=== PATIENT | female | born 1965 | race Caucasian/White ===

== ENCOUNTER 2022-05-11 09:55 | Inpatient (IN) | payer BC, OTHER ==
[~2022-05-11] VITALS: Ht 162.6 cm; Wt 90.3 kg
[~2022-05-11 09:55] MED LIST: BUPR-317 PO; DIPH25CA85 PO; HYDR-3830 PO; MAGNESIUM PO; MIRALAX PO; OMEP40CA21 PO; ONDA4TAB10 PO; PROBIOTIC PO; VITAMIN D3 PO; ZOLP12.555 PO
[2022-05-11 11:07] LABS: BASOPHILS % (AUTO) 1.3 % (0.0-5.0); EOSINOPHILS % (AUTO) 12.7 % (0.0-8.0); HEMATOCRIT 32.3 % (36-48); LYMPHOCYTES % (AUTO) 19.4 % (21.0-51.0); MEAN CORPUSCULAR HEMOGLOBIN 27.9 pg (27.0-33.0); MEAN CORPUSCULAR HGB CONC 31.9 g/dL (32.0-36.0); MEAN CORPUSCULAR VOLUME 87.5 fL (79-99); MONOCYTES % (AUTO) 5.4 % (3.0-13.0); NEUTROPHILS % (AUTO) 60.8 % (40.0-77.0); PLATELET COUNT (AUTO) 215 K/uL (130-400); RED BLOOD CELL COUNT(AUTO) 3.69 MIL/uL (4.00-5.50); RED CELL DISTRIBUTION WIDTH 13.2 % (11.0-15.5); WHITE BLOOD COUNT (AUTO) 5.5 K/uL (4.8-10.8)
[2022-05-11 11:17] LABS: CREATININE 1.1 mg/dL (0.5-1.5); POTASSIUM 4.4 mmol/L (3.5-5.1)
[2022-05-11 11:21] LABS: ALBUMIN 2.9 g/dL (3.5-5.0); TOTAL PROTEIN, SERUM 6.7 g/dL (6.0-8.3)
[2022-05-11] MEDS ORDERED: PANTOPRAZOLE 40 MG/VIAL IVP STA (11:48)
[2022-05-11 11:57] LABS: AMPHET/METH SCREEN,URINE NEGATIVE (NEGATIVE); BARBITURATE SCREEN, URINE NEGATIVE (NEGATIVE); BENZODIAZEPINES SCREEN,URINE NEGATIVE (NEGATIVE); CANNABINOID SCREEN,URINE NEGATIVE (NEGATIVE); COCAINE SCREEN,URINE NEGATIVE (NEGATIVE); OPIATE SCREEN,URINE NEGATIVE (NEGATIVE); PHENCYCLIDINE SCREEN,URINE NEGATIVE (NEGATIVE)
[2022-05-11 11:59] LABS: APPEARANCE,URINE CLEAR (CLEAR); BILIRUBIN,URINE NEGATIVE (NEGATIVE); COLOR,URINE LIGHT-YELLOW (YELLOW); GLUCOSE, URINE (UA) NEGATIVE (NEGATIVE); KETONES,URINE NEGATIVE (NEGATIVE); LEUKOCYTE ESTERASE ,URINE NEGATIVE Leu/uL (NEGATIVE); NITRATE,URINE NEGATIVE (NEGATIVE); OCCULT BLOOD,URINE NEGATIVE (NEGATIVE); PROTEIN,URINE NEGATIVE (NEGATIVE); UROBILINOGEN,URINE 0.2 mg/dL (0.2-1.0)
[2022-05-11 12:01] LABS: SQUAMOUS EPITHELIAL CELL,UR RARE /HPF (0-2); WBC,URINE 0-1 /HPF (0-1)
[2022-05-11] MEDS ORDERED: ONDANSETRON 4MG INJ IVP ONE (13:00)
[2022-05-11] MEDS ORDERED: MORPHINE 2 MG SYG IVP ONE (13:00)
[2022-05-11] MEDS ORDERED: ZOSYN 3.375GM +NS 50ML IV STA (13:11)
[2022-05-11] MEDS ORDERED: MORPHINE 2 MG SYG IVP PRN (14:30)
[2022-05-11] MEDS ORDERED: ONDANSETRON 4MG INJ IV PRN (14:30)
[2022-05-11] MEDS ORDERED: ACETAMINOPHEN 325 MG TAB PO PRN (14:30)
[2022-05-11] MEDS: 0.9%NACL 1000ML 1,000 ML IV SCH (14:30)
[2022-05-11 15:19] LABS: HEMOGLOBIN A1C 5.1 % (4.0-6.0)
[2022-05-11] MEDS: ZOSYN 3.375GM +NS 50ML IV SCH ×2 (15:36→23:15)
[2022-05-11] MEDS ORDERED: IOHEXOL 350 MG/ML 100ML INFUS..BTL IV ONE (16:31)
[2022-05-11] MEDS ORDERED: FAMOTIDINE 20MG VIAL IV SCH (21:00)
[2022-05-11] MEDS: FAMOTIDINE 20MG VIAL IV SCH (21:13)
[2022-05-11] MEDS ORDERED: POLY17PO4 PO (22:00)
[2022-05-11] MEDS ORDERED: BUPR-317 PO (22:00)
[2022-05-11] MEDS ORDERED: ZOLP12.555 PO (22:00)
[2022-05-11] MEDS ORDERED: L.AC1CAP6 PO (22:00)
[2022-05-11] MEDS ORDERED: MAGN100T5 PO (22:00)
[2022-05-11] MEDS ORDERED: ONDA-104 PO (22:00)
[2022-05-11] MEDS ORDERED: HYDR-3830 PO (22:00)
[2022-05-12] MEDS: 0.9%NACL 1000ML 1,000 ML IV SCH ×4 (00:42→20:30)
[2022-05-12 01:07] VITALS: BP 108/54
[2022-05-12 04:46] VITALS: BP 122/74
[2022-05-12 04:53] LABS: HEMATOCRIT 30.6 % (36-48); MEAN CORPUSCULAR HEMOGLOBIN 27.8 pg (27.0-33.0); MEAN CORPUSCULAR HGB CONC 31.7 g/dL (32.0-36.0); MEAN CORPUSCULAR VOLUME 87.7 fL (79-99); RED BLOOD CELL COUNT(AUTO) 3.49 MIL/uL (4.00-5.50); RED CELL DISTRIBUTION WIDTH 13.2 % (11.0-15.5); WHITE BLOOD COUNT (AUTO) 5.7 K/uL (4.8-10.8)
[2022-05-12 05:05] LABS: POTASSIUM 3.9 mmol/L (3.5-5.1)
[2022-05-12] MEDS: ZOSYN 3.375GM +NS 50ML IV SCH ×3 (05:47→22:35)
[2022-05-12 07:35] VITALS: BP 105/70
[2022-05-12] MEDS: HYDROXYZINE 10 MG TABLET PO SCH ×2 (09:00→12:25)
[2022-05-12] MEDS: ENOXAPARIN SODIUM 40 MG/0.4 ML SYRINGE SQ SCH (09:00)
[2022-05-12] MEDS: FAMOTIDINE 20MG VIAL IV SCH ×2 (09:18→20:32)
[2022-05-12 11:35] VITALS: BP 110/57
[2022-05-12 16:00] VITALS: BP 131/88
[2022-05-12 19:54] VITALS: BP 119/59
[2022-05-12] MEDS ORDERED: LACTULOSE 20 GM/30 ML UDCUP ONE (20:26)
[2022-05-12] MEDS ORDERED: POLYETHYLENE GLYCOL 3350 17 GM POWD.PACK ONE (20:27)
[2022-05-12] MEDS ORDERED: LACTULOSE 20 GM/30 ML UDCUP PO PRN (20:30)
[2022-05-12] MEDS: ACETAMINOPHEN 325 MG TAB PO PRN (20:33)
[2022-05-13] VITALS (17 sets, daily range): BP systolic 118–151; BP diastolic 58–79
[2022-05-13] MEDS: 0.9%NACL 1000ML 1,000 ML IV SCH ×2 (02:42→18:20)
[2022-05-13] MEDS ORDERED: ALPRAZOLAM 0.5 MG TABLET PO ONE (04:30)
[2022-05-13] MEDS ORDERED: ALPRAZOLAM 0.5 MG TABLET ONE (04:30)
[2022-05-13] MEDS: ZOSYN 3.375GM +NS 50ML IV SCH ×3 (04:51→20:22)
[2022-05-13 05:07] LABS: HEMATOCRIT 30.4 % (36-48); MEAN CORPUSCULAR HGB CONC 31.9 g/dL (32.0-36.0); MEAN CORPUSCULAR VOLUME 87.9 fL (79-99); RED BLOOD CELL COUNT(AUTO) 3.46 MIL/uL (4.00-5.50); RED CELL DISTRIBUTION WIDTH 12.9 % (11.0-15.5); WHITE BLOOD COUNT (AUTO) 5.3 K/uL (4.8-10.8)
[2022-05-13 05:25] LABS: INR 1.04 (0.85-1.15); PROTHROMBIN TIME 11.3 SEC (9.6-11.6)
[2022-05-13 05:27] LABS: POTASSIUM 3.5 mmol/L (3.5-5.1)
[2022-05-13] MEDS: ENOXAPARIN SODIUM 40 MG/0.4 ML SYRINGE SQ SCH (09:00)
[2022-05-13] MEDS: POLYETHYLENE GLYCOL 3350 17 GM POWD.PACK PO SCH (09:00)
[2022-05-13] MEDS: HYDROXYZINE 10 MG TABLET PO SCH (09:00)
[2022-05-13] MEDS: FAMOTIDINE 20MG VIAL IV SCH ×2 (09:24→20:22)
[2022-05-14] MEDS: 0.9%NACL 1000ML 1,000 ML IV SCH ×4 (01:42→22:30)
[2022-05-14 03:37] VITALS: BP 127/61
[2022-05-14] MEDS: ZOSYN 3.375GM +NS 50ML IV SCH ×3 (04:30→20:08)
[2022-05-14 05:12] LABS: BASOPHILS % (AUTO) 1.1 % (0.0-5.0); EOSINOPHILS % (AUTO) 18.4 % (0.0-8.0); HEMATOCRIT 38.6 % (36-48); LYMPHOCYTES % (AUTO) 22.7 % (21.0-51.0); MEAN CORPUSCULAR HEMOGLOBIN 28.3 pg (27.0-33.0); MEAN CORPUSCULAR HGB CONC 32.1 g/dL (32.0-36.0); MEAN CORPUSCULAR VOLUME 88.1 fL (79-99); MONOCYTES % (AUTO) 7.3 % (3.0-13.0); NEUTROPHILS % (AUTO) 50.2 % (40.0-77.0); PLATELET COUNT (AUTO) 195 K/uL (130-400); RED BLOOD CELL COUNT(AUTO) 4.38 MIL/uL (4.00-5.50); RED CELL DISTRIBUTION WIDTH 13.1 % (11.0-15.5); WHITE BLOOD COUNT (AUTO) 6.4 K/uL (4.8-10.8)
[2022-05-14 05:33] LABS: ALBUMIN 2.4 g/dL (3.5-5.0); CREATININE 0.9 mg/dL (0.5-1.5); POTASSIUM 3.5 mmol/L (3.5-5.1); TOTAL PROTEIN, SERUM 6.3 g/dL (6.0-8.3)
[2022-05-14 07:30] VITALS: BP 121/86
[2022-05-14] MEDS: ENOXAPARIN SODIUM 40 MG/0.4 ML SYRINGE SQ SCH (09:40)
[2022-05-14] MEDS: POLYETHYLENE GLYCOL 3350 17 GM POWD.PACK PO SCH (09:40)
[2022-05-14] MEDS: HYDROXYZINE 10 MG TABLET PO SCH (09:40)
[2022-05-14] MEDS: FAMOTIDINE 20MG VIAL IV SCH ×2 (09:40→20:08)
[2022-05-14 11:22] VITALS: BP 121/67
[2022-05-14 15:30] VITALS: BP 128/75
[2022-05-14] MEDS ORDERED: LIDOCAINE HCL-MPF 1% 2ML VIAL IV PRN (15:30)
[2022-05-14] MEDS ORDERED: POTASSIUM CHLORIDE 20MEQ/100ML 100 ML IV PRN (15:30)
[2022-05-14] MEDS ORDERED: POTASSIUM CHLORIDE 10% ELIXIR 20 MEQ/15 ML UDCUP PO PRN (15:30)
[2022-05-14 19:50] VITALS: BP 111/50
[2022-05-14] MEDS: ALPRAZOLAM 0.5 MG TABLET PO PRN (20:08)
[2022-05-14 23:40] VITALS: BP 113/59
[2022-05-15 04:00] VITALS: BP 115/66
[2022-05-15] MEDS: ZOSYN 3.375GM +NS 50ML IV SCH (06:22)
[2022-05-15 08:00] VITALS: BP 123/35
[2022-05-15] MEDS: 0.9%NACL 1000ML 1,000 ML IV SCH (08:30)
[2022-05-15] MEDS: POLYETHYLENE GLYCOL 3350 17 GM POWD.PACK PO SCH (09:00)
[2022-05-15] MEDS: FAMOTIDINE 20MG VIAL IV SCH ×2 (09:00→20:25)
[2022-05-15 09:03] LABS: HEMATOCRIT 31.7 % (36-48); MEAN CORPUSCULAR HEMOGLOBIN 27.8 pg (27.0-33.0); MEAN CORPUSCULAR HGB CONC 31.9 g/dL (32.0-36.0); MEAN CORPUSCULAR VOLUME 87.3 fL (79-99); RED BLOOD CELL COUNT(AUTO) 3.63 MIL/uL (4.00-5.50); RED CELL DISTRIBUTION WIDTH 13.4 % (11.0-15.5); WHITE BLOOD COUNT (AUTO) 5.8 K/uL (4.8-10.8)
[2022-05-15 09:20] LABS: ALBUMIN 2.4 g/dL (3.5-5.0); BILIRUBIN,DIRECT 0.1 mg/dL (0.0-0.3); CRP QUANTITATIVE 8.7 mg/L (0.00-9.0); MAGNESIUM 1.7 mg/dL (1.80-2.40); POTASSIUM 4.4 mmol/L (3.5-5.1); TOTAL PROTEIN, SERUM 6.1 g/dL (6.0-8.3)
[2022-05-15] MEDS: HYDROXYZINE 10 MG TABLET PO SCH (10:09)
[2022-05-15] MEDS: ENOXAPARIN SODIUM 40 MG/0.4 ML SYRINGE SQ SCH (10:09)
[2022-05-15 12:05] VITALS: BP 129/64
[2022-05-15] MEDS: AMOX/CLAV 875/125MG TAB PO SCH ×2 (13:27→20:26)
[2022-05-15] MEDS: ZYVOX 600 MG TAB PO SCH ×2 (13:28→20:26)
[2022-05-15 15:37] VITALS: BP 142/73
[2022-05-15 20:00] VITALS: BP 140/84
[2022-05-15] MEDS: ALPRAZOLAM 0.5 MG TABLET PO PRN (22:08)
[2022-05-15 23:31] VITALS: BP 136/67
[2022-05-16 04:00] VITALS: BP 118/68
[2022-05-16 05:33] LABS: HEMATOCRIT 32.7 % (36-48); MEAN CORPUSCULAR HEMOGLOBIN 27.7 pg (27.0-33.0); MEAN CORPUSCULAR HGB CONC 31.5 g/dL (32.0-36.0); MEAN CORPUSCULAR VOLUME 87.9 fL (79-99); RED BLOOD CELL COUNT(AUTO) 3.72 MIL/uL (4.00-5.50); RED CELL DISTRIBUTION WIDTH 13.2 % (11.0-15.5); WHITE BLOOD COUNT (AUTO) 6.2 K/uL (4.8-10.8)
[2022-05-16 06:09] LABS: ALBUMIN 2.4 g/dL (3.5-5.0); CREATININE 0.9 mg/dL (0.5-1.5); POTASSIUM 3.2 mmol/L (3.5-5.1)
[2022-05-16] MEDS: KCL 20 MEQ ERTAB PO PRN ×3 (06:42→11:29)
[2022-05-16 07:30] VITALS: BP 127/76
[2022-05-16] MEDS ORDERED: FAMOTIDINE 20MG TAB ONE (07:37)
[2022-05-16] MEDS: AMOX/CLAV 875/125MG TAB PO SCH ×2 (08:20→20:45)
[2022-05-16] MEDS: ENOXAPARIN SODIUM 40 MG/0.4 ML SYRINGE SQ SCH (08:20)
[2022-05-16] MEDS: HYDROXYZINE 10 MG TABLET PO SCH (08:20)
[2022-05-16] MEDS: ZYVOX 600 MG TAB PO SCH ×2 (08:20→20:45)
[2022-05-16] MEDS: POLYETHYLENE GLYCOL 3350 17 GM POWD.PACK PO SCH (08:25)
[2022-05-16 11:30] VITALS: BP 105/70
[2022-05-16 15:30] VITALS: BP 80/47
[2022-05-16] MEDS ORDERED: POTASSIUM CHLORIDE 10% ELIXIR 20 MEQ/15 ML UDCUP PO ONE (18:30)
[2022-05-16] MEDS ORDERED: POTASSIUM CHLORIDE 20 MEQ/100 ML BAG IV ONE (18:30)
[2022-05-16 20:00] VITALS: BP 138/67
[2022-05-16] MEDS: ALPRAZOLAM 0.5 MG TABLET PO PRN (20:46)
[2022-05-16 23:26] VITALS: BP 108/54
[2022-05-17 03:57] VITALS: BP 103/53
[2022-05-17 04:48] LABS: BASOPHILS % (AUTO) 0.6 % (0.0-5.0); HEMATOCRIT 31.5 % (36-48); LYMPHOCYTES % (AUTO) 13.9 % (21.0-51.0); MEAN CORPUSCULAR HEMOGLOBIN 28.3 pg (27.0-33.0); MEAN CORPUSCULAR HGB CONC 31.7 g/dL (32.0-36.0); MEAN CORPUSCULAR VOLUME 89.2 fL (79-99); NEUTROPHILS % (AUTO) 74.2 % (40.0-77.0); PLATELET COUNT (AUTO) 192 K/uL (130-400); RED BLOOD CELL COUNT(AUTO) 3.53 MIL/uL (4.00-5.50); RED CELL DISTRIBUTION WIDTH 13.8 % (11.0-15.5); WHITE BLOOD COUNT (AUTO) 8.9 K/uL (4.8-10.8)
[2022-05-17 05:08] LABS: ALBUMIN 2.3 g/dL (3.5-5.0); CREATININE 0.9 mg/dL (0.5-1.5); POTASSIUM 3.7 mmol/L (3.5-5.1); TOTAL PROTEIN, SERUM 5.9 g/dL (6.0-8.3)
[2022-05-17 07:59] VITALS: BP 121/76
[2022-05-17] MEDS ORDERED: FAMOTIDINE 20MG TAB PO SCH (08:30)
[2022-05-17] MEDS: POLYETHYLENE GLYCOL 3350 17 GM POWD.PACK PO SCH (09:00)
[2022-05-17] MEDS: ENOXAPARIN SODIUM 40 MG/0.4 ML SYRINGE SQ SCH (09:00)
[2022-05-17] MEDS: ZYVOX 600 MG TAB PO SCH ×2 (11:09→20:47)
[2022-05-17] MEDS: HYDROXYZINE 10 MG TABLET PO SCH (11:09)
[2022-05-17] MEDS: AMOX/CLAV 875/125MG TAB PO SCH ×2 (11:10→20:47)
[2022-05-17 12:00] VITALS: BP 127/68
[2022-05-17] MEDS: KCL 20 MEQ ERTAB PO PRN ×2 (15:53→17:49)
[2022-05-17 16:00] VITALS: BP 136/65
[2022-05-17 20:36] VITALS: BP 119/72
[2022-05-17] MEDS: ALPRAZOLAM 0.5 MG TABLET PO PRN (22:23)
[2022-05-17 23:20] VITALS: BP 125/70
[2022-05-18 03:52] VITALS: BP 122/75
[2022-05-18 05:08] LABS: HEMATOCRIT 31.6 % (36-48); MEAN CORPUSCULAR HGB CONC 32.3 g/dL (32.0-36.0); MEAN CORPUSCULAR VOLUME 86.8 fL (79-99); RED BLOOD CELL COUNT(AUTO) 3.64 MIL/uL (4.00-5.50); RED CELL DISTRIBUTION WIDTH 13.8 % (11.0-15.5); WHITE BLOOD COUNT (AUTO) 9.3 K/uL (4.8-10.8)
[2022-05-18 05:23] LABS: CREATININE 0.9 mg/dL (0.5-1.5)
[2022-05-18 08:00] VITALS: BP 132/89
[2022-05-18] MEDS: ENOXAPARIN SODIUM 40 MG/0.4 ML SYRINGE SQ SCH (09:00)
[2022-05-18] MEDS: POLYETHYLENE GLYCOL 3350 17 GM POWD.PACK PO SCH (09:00)
[2022-05-18] MEDS: ZYVOX 600 MG TAB PO SCH ×2 (11:19→21:45)
[2022-05-18] MEDS: AMOX/CLAV 875/125MG TAB PO SCH ×2 (11:19→21:45)
[2022-05-18] MEDS: HYDROXYZINE 10 MG TABLET PO SCH (11:19)
[2022-05-18] MEDS: ACETAMINOPHEN 325 MG TAB PO PRN (11:23)
[2022-05-18 11:58] VITALS: BP 97/58
[2022-05-18 16:00] VITALS: BP 113/66
[2022-05-18 19:00] VITALS: BP 91/65
[2022-05-18] MEDS: ALPRAZOLAM 0.5 MG TABLET PO PRN (21:51)
[2022-05-19] VITALS: BP 98/54
[2022-05-19 04:00] VITALS: BP 116/72
[2022-05-19 05:05] LABS: BASOPHILS % (AUTO) 0.6 % (0.0-5.0); EOSINOPHILS % (AUTO) 4.6 % (0.0-8.0); HEMATOCRIT 32.3 % (36-48); MEAN CORPUSCULAR HGB CONC 31.9 g/dL (32.0-36.0); MEAN CORPUSCULAR VOLUME 87.8 fL (79-99); MONOCYTES % (AUTO) 5.2 % (3.0-13.0); NEUTROPHILS % (AUTO) 73.2 % (40.0-77.0); PLATELET COUNT (AUTO) 212 K/uL (130-400); RED BLOOD CELL COUNT(AUTO) 3.68 MIL/uL (4.00-5.50); RED CELL DISTRIBUTION WIDTH 13.9 % (11.0-15.5); WHITE BLOOD COUNT (AUTO) 8.1 K/uL (4.8-10.8)
[2022-05-19 05:20] LABS: CREATININE 0.8 mg/dL (0.5-1.5); POTASSIUM 3.9 mmol/L (3.5-5.1)
[2022-05-19 08:00] VITALS: BP 120/31
[2022-05-19] MEDS: ENOXAPARIN SODIUM 40 MG/0.4 ML SYRINGE SQ SCH (09:55)
[2022-05-19] MEDS: AMOX/CLAV 875/125MG TAB PO SCH (09:55)
[2022-05-19] MEDS: POLYETHYLENE GLYCOL 3350 17 GM POWD.PACK PO SCH (09:55)
[2022-05-19] MEDS: ZYVOX 600 MG TAB PO SCH (09:55)
[2022-05-19] MEDS: HYDROXYZINE 10 MG TABLET PO SCH (09:55)
[2022-05-19 11:54] VITALS: BP 108/60
== END 2022-05-19 16:00 | disposition home or self-care (01) | DRG 862 ==
LOC: EDH 09:55 → OBSVTOIN 14:24 → EDHIP 14:24 → 3BH 23:25
PROVIDERS: ADMIT Hospitalist; ATTEND Hospitalist
PROC: 0W9F3ZZ Drainage of Abdominal Wall, Percutaneous Approach (ICD-10-PCS; principal; 2022-05-13)
DX: T81.43XA Infection following a procedure, organ and space surgical site, initial encounter (principal); K65.1 Peritoneal abscess; R53.2 Functional quadriplegia; L03.311 Cellulitis of abdominal wall; L02.211 Cutaneous abscess of abdominal wall; T85.79XA Infection and inflammatory reaction due to other internal prosthetic devices, implants and grafts, initial encounter; L02.818 Cutaneous abscess of other sites; K31.84 Gastroparesis; E66.01 Morbid (severe) obesity due to excess calories; I10 Essential (primary) hypertension; M19.90 Unspecified osteoarthritis, unspecified site; Z53.20 Procedure and treatment not carried out because of patient's decision for unspecified reasons; Z96.653 Presence of artificial knee joint, bilateral; Z68.34 Body mass index [BMI] 34.0-34.9, adult; Z90.49 Acquired absence of other specified parts of digestive tract; Z83.3 Family history of diabetes mellitus; Y82.8 Other medical devices associated with adverse incidents
CPT/HCPCS: 36415; 74176; 74177; 75989; 76942; 80048; 80053; 80076; 80305; 81001; 82550; 83036; 83690; 83735; 84145; 84484; 85025; 85027; 85610; 85651; 85730; 86140; 87071; 87205; 93005; 96361; 96365; 99291; C1729; C9113; G0378; J1650; J2405; J2543; J3490; J7030; Q9967

== ENCOUNTER 2022-06-16 14:35 | Emergency (ER) | payer BC ==
[~2022-06-16] VITALS: Ht 165.1 cm; Wt 84.4 kg
[~2022-06-16 14:35] MED LIST changes: -DIPH25CA85 PO; +L.AC1CAP6 PO; +MAGN100T5 PO; -MAGNESIUM PO; -MIRALAX PO; -OMEP40CA21 PO; -ONDA4TAB10 PO; -PROBIOTIC PO; -ZOLP12.555 PO
[2022-06-16 17:57] LABS: APPEARANCE,URINE CLOUDY (CLEAR); BILIRUBIN,URINE NEGATIVE (NEGATIVE); COLOR,URINE LIGHT-YELLOW (YELLOW); GLUCOSE, URINE (UA) NEGATIVE (NEGATIVE); KETONES,URINE 40 mg/dL (NEGATIVE); LEUKOCYTE ESTERASE ,URINE 500 Leu/uL (NEGATIVE); NITRATE,URINE 2+ (NEGATIVE); OCCULT BLOOD,URINE NEGATIVE (NEGATIVE); PROTEIN,URINE NEGATIVE (NEGATIVE); UROBILINOGEN,URINE 0.2 mg/dL (0.2-1.0)
[2022-06-16 18:09] LABS: BACTERIA,URINE RARE /HPF (None Seen); MUCUS,URINE RARE LPF (None Seen); SQUAMOUS EPITHELIAL CELL,UR RARE /HPF (0-2); WBC,URINE TNTC /HPF (0-1); YEAST,URINE BUDDING MOD /HPF (None Seen)
[2022-06-16 18:14] LABS: BASOPHILS % (AUTO) 0.9 % (0.0-5.0); EOSINOPHILS % (AUTO) 2.3 % (0.0-8.0); LYMPHOCYTES % (AUTO) 26.3 % (21.0-51.0); MEAN CORPUSCULAR HEMOGLOBIN 28.1 pg (27.0-33.0); MEAN CORPUSCULAR HGB CONC 30.8 g/dL (32.0-36.0); MEAN CORPUSCULAR VOLUME 91.1 fL (79-99); MONOCYTES % (AUTO) 5.4 % (3.0-13.0); NEUTROPHILS % (AUTO) 64.9 % (40.0-77.0); PLATELET COUNT (AUTO) 170 K/uL (130-400); RED BLOOD CELL COUNT(AUTO) 4.06 MIL/uL (4.00-5.50); RED CELL DISTRIBUTION WIDTH 14.9 % (11.0-15.5); WHITE BLOOD COUNT (AUTO) 5.7 K/uL (4.8-10.8)
[2022-06-16 18:26] LABS: CARBON DIOXIDE 24 mmol/L (21-32); CHLORIDE 105 mmol/L (101-111); CREATININE 0.9 mg/dL (0.5-1.5); GLOMERULAR FILTR. RATE CALC 69 mL/min (>60); GLUCOSE,RANDOM 82 mg/dL (70-105); POTASSIUM 4.1 mmol/L (3.5-5.1); SODIUM SERUM 138 mmol/L (136-145); UREA NITROGEN, BLOOD 8 mg/dL (7-18)
[2022-06-16 18:30] LABS: ALANINE AMINOTRANSFERASE 16 U/L (12-78); ALBUMIN 3.1 g/dL (3.5-5.0); ASPARTATE AMINOTRANSFERASE 20 U/L (10-37); TOTAL PROTEIN, SERUM 6.7 g/dL (6.0-8.3)
[2022-06-16 18:31] LABS: LIPASE < 50 U/L (114-286)
[2022-06-16] MEDS ORDERED: CEFTRIAXONE 1G VIAL IVP ONE (20:00)
[2022-06-16] MEDS ORDERED: ACETAMINOPHEN 325 MG TAB PO ONE (20:00)
[2022-06-16] MEDS ORDERED: CEPH500B PO (20:06)
[2022-06-16 20:19] VITALS: BP 145/83
== END 2022-06-16 20:21 | disposition home or self-care (01) ==
LOC: EDH 14:35
DX: N39.0 Urinary tract infection, site not specified (principal); Z79.899 Other long term (current) drug therapy; Z91.040 Latex allergy status; Z88.8 Allergy status to other drugs, medicaments and biological substances
CPT/HCPCS: 99284; 74176; 96374; 84484; 80053; 83690; 85025; 87077; 87088; 87186; 81001; 36415; 93005; J0696

== ENCOUNTER → 2022-07-13 | Outpatient (CLI) | payer BC, OTHER ==
[~2022-07-13] MED LIST changes: +CEPH500B PO
== END | disposition home or self-care (01) ==
LOC: RAH 10:03
PROVIDERS: ATTEND Internal Medicine
DX: R10.84 Generalized abdominal pain (principal)
CPT/HCPCS: 74018